=== PATIENT | female | born 1995 | race Two or more races ===

== ENCOUNTER 2021-08-18 03:21 | Emergency (ER) | payer MEDICAID ==
[~2021-08-18] VITALS: Ht 162.6 cm; Wt 160.0 kg
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
--- NOTE | 2021-08-18 03:39 | NUR ---
PATIENT TO CT
[2021-08-18] MEDS ORDERED: HYDROcodone/acetaminophen 5mg/325mg tablet PO ONE (04:25)
--- NOTE | 2021-08-18 04:29 | NUR ---
patient is now complaining of headache 11/22 MD made aware
[2021-08-18] MEDS ORDERED: morphine 4 MG/ML inj SYRINge IM ONE (04:40)
[2021-08-18] MEDS ORDERED: ondansetron 4mg rapidly disintigrating tab PO ONE (04:40)
[2021-08-18 05:14] VITALS: BP 113/84
== END 2021-08-18 05:19 | disposition home or self-care (01) ==
LOC: ER 03:22
DX: S06.5X9A Traumatic subdural hemorrhage with loss of consciousness of unspecified duration, initial encounter (principal); W22.8XXA Striking against or struck by other objects, initial encounter; Y93.89 Activity, other specified; Y92.89 Other specified places as the place of occurrence of the external cause; Y99.8 Other external cause status
CPT/HCPCS: 70450; 72125; 96372; 99284; J2270